=== PATIENT | male | born 1965 | race Caucasian/White ===

== ENCOUNTER 2017-02-09 09:35 | Inpatient (IN) | payer SELFPAY ==
[~2017-02-09] VITALS: Ht 154.9 cm; Wt 103.4 kg
[~2017-02-09 09:35] MED LIST: HYDR-1348 PO; METR500T PO; amoxicillin; dicyclomine; omeprazole; reglan
[2017-02-09 12:32] LABS: HEMATOCRIT. 24.6 % (42.0-52.0); HEMOGLOBIN. 7.2 g/dL (14.0-18.0); MEAN CORPUSCULAR HEMOGLOBIN 17.8 pg (28.0-32.0); MEAN CORPUSCULAR VOLUME 61.2 fL (80.0-94.0); MEAN PLATELET VOLUME 8.2 fl (7.4-10.4); PLATELET 244 x1000/uL (130-400); RED BLOOD CELL COUNT 4.02 mill/uL (4.7-6.1); RED CELL DISTRIBUTION WIDTH 20.7 % (11.6-14.6)
[2017-02-09 12:38] LABS: INR 1.4; PROTHROMBIN TIME 14.7 sec (9.4-11.6)
[2017-02-09 12:48] LABS: CARBON DIOXIDE 30 mEq/L (21-32); CHLORIDE 106 mEq/L (98-107); TROPONIN I < 0.02 ng/mL (0.00-0.04)
[2017-02-09 12:57] LABS: PLATELET ESTIMATE NORMAL
[2017-02-09] MEDS ORDERED: POTASSIUM CHLORIDE 20MEQ TABLET SR PO ONE (14:15)
[2017-02-09 15:26] LABS: TOTAL IRON BINDING CAPACITY 394 ug/dL (250-450)
[2017-02-09] MEDS ORDERED: HYDROCODONE/ACETAMINOPHEN 5/325MG TABLET PO PRN (15:30)
[2017-02-09] MEDS ORDERED: MORPHINE SULFATE 2 MG/ML CPJ (NOT FOR IM USE) IV PRN (15:30)
[2017-02-09] MEDS ORDERED: CLONIDINE 0.1MG TABLET PO PRN (15:30)
[2017-02-09] MEDS ORDERED: IPRATROPIUM/ALBUTEROL 0.5-3(2.5)MG/3ML NEB INH PRN (15:30)
[2017-02-09] MEDS ORDERED: GUAIFENESIN 200MG/10ML SUGAR FREE UDC PO PRN (15:30)
[2017-02-09] MEDS ORDERED: DIPHENHYDRAMINE 50MG/ML VIAL IV PRN (15:30)
[2017-02-09] MEDS ORDERED: MAGNESIUM/ALUMINUM HYDROXIDE/SIMETHICONE 30ML UDC PO PRN (15:30)
[2017-02-09] MEDS ORDERED: DOCUSATE SODIUM 100MG CAPSULE PO PRN (15:30)
[2017-02-09] MEDS ORDERED: ONDANSETRON HCL 4MG/2ML VIAL IV PRN (15:30)
[2017-02-09] MEDS ORDERED: NA PHOS,M-B/NA PHOS,DI-BA ENEMA 118ML PR PRN (15:30)
[2017-02-09] MEDS ORDERED: LORAZEPAM 0.5MG TABLET PO PRN (16:30)
[2017-02-09 17:03] LABS: CHLORIDE 106 mEq/L (98-107)
[2017-02-09 17:09] LABS: CARBON DIOXIDE 28 mEq/L (21-32)
[2017-02-09 21:00] VITALS: BP 135/70
[2017-02-09] MEDS ORDERED: DEXTROSE 50% WATER 50ML SYRINGE IV PRN (23:30)
[2017-02-09] MEDS: LORAZEPAM 2MG/ML CPJ IM PRN (23:42)
[2017-02-09] MEDS: DEXT 5%/0.45% NACL KCL 10MEQ/L 1,000 ML IV SCH (23:54)
[2017-02-10] VITALS (10 sets, daily range): BP systolic 125–148; BP diastolic 62–83
[2017-02-10] MEDS: ACETAMINOPHEN 325MG TABLET PO PRN ×2 (05:37→14:50)
[2017-02-10] MEDS: LORAZEPAM 2MG/ML CPJ IM PRN (05:45)
[2017-02-10 06:11] LABS: BASOPHILS % 1.2 % (0.0-2.0); EOSINOPHILS % 10.8 % (0.0-5.0); LYMPHOCYTES % 20.6 % (20.0-50.0); MEAN CORPUSCULAR HEMOGLOBIN 17.8 pg (28.0-32.0); MEAN CORPUSCULAR VOLUME 61.3 fL (80.0-94.0); MEAN PLATELET VOLUME 8.6 fl (7.4-10.4); MONOCYTES % 10.5 % (2.0-8.0); NEUTROPHILS % 56.9 % (40.0-76.0); PLATELET 213 x1000/uL (130-400); RED BLOOD CELL COUNT 3.75 mill/uL (4.7-6.1); RED CELL DISTRIBUTION WIDTH 20.3 % (11.6-14.6)
[2017-02-10 06:45] LABS: CHLORIDE 105 mEq/L (98-107)
[2017-02-10 06:49] LABS: HEMOGLOBIN. 6.7 g/dL (14.0-18.0)
[2017-02-10 06:59] LABS: CARBON DIOXIDE 25 mEq/L (21-32); HDL CHOLESTEROL 38 mg/dL (40-59); LDL CHOLESTEROL 75 mg/dL (5-100)
[2017-02-10] MEDS: BLOOD SUGAR DIAGNOSTIC STRIP TEST SCH ×4 (07:16→20:10)
[2017-02-10] MEDS: INSULIN LISPRO 100 UNITS/ML SUBCUT SCH ×4 (07:17→20:10)
[2017-02-10] MEDS: DEXT 5%/0.45% NACL KCL 10MEQ/L 1,000 ML IV SCH (12:20)
[2017-02-10] MEDS ORDERED: LEVOFLOXACIN 500MG PREMIX 100 ML IV SCH (18:00)
[2017-02-11] VITALS (8 sets, daily range): BP systolic 133–155; BP diastolic 72–90
[2017-02-11 01:06] LABS: HEMATOCRIT 27.5 % (42.0-52.0); HEMOGLOBIN 7.9 g/dL (14.0-18.0)
[2017-02-11 01:10] LABS: INR 1.6; PROTHROMBIN TIME 16.4 sec (9.4-11.6)
[2017-02-11] MEDS: DEXT 5%/0.45% NACL KCL 10MEQ/L 1,000 ML IV SCH (01:55)
[2017-02-11] MEDS: BLOOD SUGAR DIAGNOSTIC STRIP TEST SCH (07:24)
[2017-02-11] MEDS: INSULIN LISPRO 100 UNITS/ML SUBCUT SCH (07:25)
== END 2017-02-11 10:42 | disposition home or self-care (01) | DRG 663 ==
LOC: ER 10:18 → 6EST 14:57 → EDBEDREQ 15:10 → EDBEDREQSVC 15:20 → ENRESERV 19:53
PROVIDERS: ADMIT Internal Medicine; ATTEND Internal Medicine
PROC: 30233N1 Transfusion of Nonautologous Red Blood Cells into Peripheral Vein, Percutaneous Approach (ICD-10-PCS; principal; 2017-02-10)
DX: D63.8 Anemia in other chronic diseases classified elsewhere (principal); I10 Essential (primary) hypertension; E11.9 Type 2 diabetes mellitus without complications; E87.6 Hypokalemia; F17.200 Nicotine dependence, unspecified, uncomplicated; Z90.49 Acquired absence of other specified parts of digestive tract; Z79.899 Other long term (current) drug therapy
CPT/HCPCS: 36415; 36430; 71010; 80048; 80053; 80061; 82962; 83540; 83550; 83880; 84484; 85014; 85018; 85025; 85049; 85384; 85610; 86850; 86900; 86920; 93005; 94664; 99285; J1956; J2060; J7030; J7040; J7620; P9016

== ENCOUNTER 2017-09-08 14:58 | Inpatient (IN) | payer MEDICAID, OTHER ==
[~2017-09-08] VITALS: Ht 152.4 cm; Wt 98.0 kg
[2017-09-08 17:12] LABS: MEAN CORPUSCULAR HEMOGLOBIN 18.7 pg (28.0-32.0); MEAN CORPUSCULAR VOLUME 62.8 fL (80.0-94.0); MEAN PLATELET VOLUME 8.6 fl (7.4-10.4); PLATELET 179 x1000/uL (130-400); RED BLOOD CELL COUNT 3.64 mill/uL (4.7-6.1); RED CELL DISTRIBUTION WIDTH 21.5 % (11.6-14.6)
[2017-09-08 17:15] LABS: INR 1.4; PROTHROMBIN TIME 14.9 sec (9.4-11.6)
[2017-09-08 17:16] LABS: HEMATOCRIT. 22.9 % (42.0-52.0); HEMOGLOBIN. 6.8 g/dL (14.0-18.0)
[2017-09-08 17:49] LABS: PLATELET ESTIMATE NORMAL
[2017-09-08 19:45] LABS: CHLORIDE 111 mEq/L (98-107)
[2017-09-08] MEDS ORDERED: DOCUSATE SODIUM 100MG CAPSULE PO PRN (21:15)
[2017-09-08] MEDS ORDERED: NA PHOS,M-B/NA PHOS,DI-BA ENEMA 118ML PR PRN (21:15)
[2017-09-08] MEDS ORDERED: ONDANSETRON HCL 4MG/2ML VIAL IV PRN (21:15)
[2017-09-08] MEDS ORDERED: DIPHENHYDRAMINE 50MG/ML VIAL IV PRN (21:15)
[2017-09-08] MEDS ORDERED: ACETAMINOPHEN 650MG/20.3ML UDC GT PRN (21:15)
[2017-09-08] MEDS ORDERED: ACETAMINOPHEN 650MG SUPP PR PRN (21:15)
[2017-09-08] MEDS ORDERED: ACETAMINOPHEN 325MG TABLET PO PRN (21:15)
[2017-09-08] MEDS ORDERED: MAGNESIUM/ALUMINUM HYDROXIDE/SIMETHICONE 30ML UDC PO PRN (21:15)
[2017-09-08] MEDS ORDERED: HYDROCODONE/ACETAMINOPHEN 5/325MG TABLET PO PRN (21:15)
[2017-09-08] MEDS ORDERED: GUAIFENESIN 200MG/10ML SUGAR FREE UDC PO PRN (21:15)
[2017-09-08] MEDS ORDERED: IPRATROPIUM/ALBUTEROL 0.5-3(2.5)MG/3ML NEB INH PRN (21:15)
[2017-09-08] MEDS ORDERED: CLONIDINE 0.1MG TABLET PO PRN (21:15)
[2017-09-08] MEDS ORDERED: HYDROCODONE/ACETAMINOPHEN 10/325MG TABLET PO PRN (21:15)
[2017-09-08 22:05] LABS: TOTAL IRON BINDING CAPACITY 398 ug/dL (250-450)
[2017-09-08 22:25] LABS: FOLIC ACID (FOLATE) SERUM 13.6 ng/mL (>5.38)
[2017-09-08 22:36] VITALS: BP 117/50
[2017-09-08] MEDS: PANTOPRAZOLE SODIUM 40 MG/VIAL IV SCH (23:04)
[2017-09-08] MEDS: SODIUM CHLORIDE 0.9% INJ 3ML FLUSH IVF SCH (23:04)
[2017-09-08 23:28] LABS: CREATINE KINASE 91 IU/L (39-308)
[2017-09-08 23:29] LABS: CREATINE KINASE MB FRACTION 0.6 ng/mL (0.5-3.6)
[2017-09-09] VITALS (11 sets, daily range): BP systolic 104–127; BP diastolic 51–73
[2017-09-09] MEDS ORDERED: DEXTROSE 50% WATER 50ML SYRINGE IV PRN (05:00)
[2017-09-09 05:34] LABS: HEMATOCRIT. 26.5 % (42.0-52.0); MEAN CORPUSCULAR HEMOGLOBIN 19.6 pg (28.0-32.0); MEAN CORPUSCULAR VOLUME 64.9 fL (80.0-94.0); MEAN PLATELET VOLUME 8.8 fl (7.4-10.4); PLATELET 189 x1000/uL (130-400); RED BLOOD CELL COUNT 4.08 mill/uL (4.7-6.1); RED CELL DISTRIBUTION WIDTH 23.6 % (11.6-14.6)
[2017-09-09 05:43] LABS: CHLORIDE 109 mEq/L (98-107)
[2017-09-09 05:51] LABS: HDL CHOLESTEROL 39 mg/dL (40-59); LDL CHOLESTEROL 55 mg/dL (5-100)
[2017-09-09 05:52] LABS: CREATINE KINASE 85 IU/L (39-308)
[2017-09-09 05:54] LABS: CREATINE KINASE MB FRACTION 0.6 ng/mL (0.5-3.6)
[2017-09-09] MEDS: SODIUM CHLORIDE 0.9% INJ 3ML FLUSH IVF SCH ×3 (06:36→21:24)
[2017-09-09] MEDS: BLOOD SUGAR DIAGNOSTIC STRIP TEST SCH ×4 (06:37→20:19)
[2017-09-09] MEDS: INSULIN LISPRO 100 UNITS/ML SUBCUT SCH ×4 (07:50→20:19)
[2017-09-09] MEDS: PANTOPRAZOLE SODIUM 40 MG/VIAL IV SCH (10:17)
[2017-09-09] MEDS ORDERED: POTASSIUM CHLORIDE 20MEQ TABLET SR PO SCH (12:00)
[2017-09-09 13:22] LABS: *AMPHETAMINES SCREEN URINE NEGATIVE (NEGATIVE); *BARBITURATES SCREEN URINE NEGATIVE (NEGATIVE); *BENZODIAZEPINES SCREEN URINE NEGATIVE (NEGATIVE); *COCAINE SCREEN URINE NEGATIVE (NEGATIVE); CANNABINOID URINE SCREEN NEGATIVE (NEGATIVE); METHADONE URINE SCREEN NEGATIVE (NEGATIVE); OPIATES URINE SCREEN NEGATIVE (NEGATIVE); PHENCYCLIDINE URINE SCREEN NEGATIVE (NEGATIVE)
[2017-09-09 15:51] LABS: HEMATOCRIT 26.3 % (42.0-52.0); HEMOGLOBIN 7.9 g/dL (14.0-18.0)
[2017-09-09] MEDS ORDERED: METOCLOPRAMIDE HCL 10MG/2ML VIAL IV NR ×2 (17:15→21:15)
[2017-09-09] MEDS ORDERED: BISACODYL 5MG TABLET PO NR ×2 (17:15→21:15)
[2017-09-09] MEDS ORDERED: SORBITOL 70% SOLN 30ML PO NR ×2 (18:15→22:15)
[2017-09-09 18:23] LABS: CHLORIDE 107 mEq/L (98-107)
[2017-09-09 18:59] LABS: PLATELET ESTIMATE NORMAL
[2017-09-09] MEDS: DEXT 5%/0.45% NACL KCL 20MEQ/L 1,000 ML IV SCH (21:23)
[2017-09-10] MEDS ORDERED: BISACODYL 5MG TABLET PO NR (01:15)
[2017-09-10] MEDS ORDERED: METOCLOPRAMIDE HCL 10MG/2ML VIAL IV NR (01:15)
[2017-09-10] MEDS ORDERED: SORBITOL 70% SOLN 30ML PO NR (02:15)
[2017-09-10] MEDS: DEXT 5%/0.45% NACL KCL 20MEQ/L 1,000 ML IV SCH (04:20)
[2017-09-10 04:28] VITALS: BP 119/65
[2017-09-10 05:48] LABS: INR 1.4; PARTIAL THROMBOPLASTIN TIME 28.4 sec (23.4-31.0); PROTHROMBIN TIME 14.4 sec (9.4-11.6)
[2017-09-10 06:00] LABS: HEMATOCRIT. 32.2 % (42.0-52.0); HEMOGLOBIN. 9.5 g/dL (14.0-18.0); MEAN CORPUSCULAR HEMOGLOBIN 19.2 pg (28.0-32.0); MEAN CORPUSCULAR VOLUME 65.1 fL (80.0-94.0); MEAN PLATELET VOLUME 8.7 fl (7.4-10.4); PLATELET 246 x1000/uL (130-400); RED BLOOD CELL COUNT 4.95 mill/uL (4.7-6.1)
[2017-09-10] MEDS: SODIUM CHLORIDE 0.9% INJ 3ML FLUSH IVF SCH ×2 (06:00→14:00)
[2017-09-10] MEDS: BLOOD SUGAR DIAGNOSTIC STRIP TEST SCH ×2 (06:13→12:09)
[2017-09-10] MEDS: INSULIN LISPRO 100 UNITS/ML SUBCUT SCH ×2 (06:13→12:10)
[2017-09-10 06:21] LABS: CHLORIDE 109 mEq/L (98-107)
[2017-09-10 08:00] VITALS: BP 120/70
[2017-09-10] MEDS: PANTOPRAZOLE SODIUM 40 MG/VIAL IV SCH (09:33)
[2017-09-10 11:39] VITALS: BP 117/67
[2017-09-10 11:50] LABS: PLATELET ESTIMATE NORMAL
[2017-09-10] MEDS ORDERED: FENTANYL CITRATE/PF 50MCG/ML 2ML VIAL ONE (12:49)
[2017-09-10] MEDS ORDERED: MIDAZOLAM HCL 5 MG/5 ML VIAL ONE (12:49)
[2017-09-10] MEDS ORDERED: FENTANYL CITRATE/PF 50MCG/ML 2ML VIAL IV PRN (13:02)
[2017-09-10] MEDS ORDERED: MIDAZOLAM HCL 2 MG/2 ML VIAL IV PRN (13:05)
[2017-09-10] MEDS ORDERED: FERR236T3 MT (13:09)
[2017-09-10] MEDS ORDERED: PANT40SU MT (13:10)
[2017-09-10] MEDS ORDERED: DIPHENHYDRAMINE 50MG/ML VIAL IV PRN (13:13)
[2017-09-10] MEDS ORDERED: DIPHENHYDRAMINE 50MG/ML VIAL ONE ×2 (13:15→13:18)
[2017-09-10] MEDS ORDERED: SIMETHICONE 40 MG/0.6 ML 30ML ONE (14:28)
[2017-09-10] MEDS ORDERED: STERILE WATER FOR INJECTION 10ML VIAL ONE (14:28)
[2017-09-10 16:15] VITALS: BP 113/56
[2017-09-10 17:50] VITALS: BP 113/56
== END 2017-09-10 18:51 | disposition home or self-care (01) | DRG 253 ==
LOC: ER 14:58 → EDBEDREQTM 18:49 → EDBEDREQ 18:49 → 6WST 18:50 → EDBEDREQ 18:52 → EDBEDREQTM 18:52 → ENRESERV 20:20
PROVIDERS: ADMIT Family Medicine; ATTEND Family Medicine
PROC: 0DJD8ZZ Inspection of Lower Intestinal Tract, Via Natural or Artificial Opening Endoscopic (ICD-10-PCS; 2017-09-10)
PROC: 0DB68ZX Excision of Stomach, Via Natural or Artificial Opening Endoscopic, Diagnostic (ICD-10-PCS; principal; 2017-09-10 11:30)
DX: K62.5 Hemorrhage of anus and rectum (principal); E44.0 Moderate protein-calorie malnutrition; Z68.41 Body mass index [BMI] 40.0-44.9, adult; E83.51 Hypocalcemia; K29.70 Gastritis, unspecified, without bleeding; K29.81 Duodenitis with bleeding; D62 Acute posthemorrhagic anemia; E11.9 Type 2 diabetes mellitus without complications; E87.6 Hypokalemia; F17.200 Nicotine dependence, unspecified, uncomplicated; E66.9 Obesity, unspecified; F17.210 Nicotine dependence, cigarettes, uncomplicated; K64.8 Other hemorrhoids; Z90.49 Acquired absence of other specified parts of digestive tract; Z79.84 Long term (current) use of oral hypoglycemic drugs
CPT/HCPCS: 36415; 80048; 80053; 80061; 80076; 80305; 82550; 82553; 82607; 82728; 82746; 82962; 83540; 83550; 84484; 85014; 85018; 85025; 85044; 85610; 85730; 86850; 86900; 86920; 88305; 88312; 88313; 99285; A4216; C9113; J1200; J1815; J2250; J2765; J3010; J7040; P9016

== ENCOUNTER 2020-04-04 03:46 | Inpatient (IN) | payer MEDICAID ==
[2020-04-04] VITALS (9 sets, daily range): BP systolic 144–186; BP diastolic 52–82
[~2020-04-04] VITALS: Ht 167.6 cm; Wt 111.1 kg
[~2020-04-04 03:46] MED LIST changes: +FERR236T3 MT; -HYDR-1348 PO; -METR500T PO; +PANT40SU MT; -amoxicillin; -dicyclomine; -omeprazole; -reglan
[2020-04-04] MEDS ORDERED: ONDANSETRON HCL 4MG/2ML INJ IV STA (04:13)
[2020-04-04] MEDS ORDERED: SODIUM CHLORIDE 0.9% 1,000 ML IV ONE ×2 (04:15→06:30)
[2020-04-04 05:47] LABS: BASOPHILS % 0.8 % (0.0-2.0); EOSINOPHILS % 1.2 % (0.0-5.0); HEMATOCRIT. 29.7 % (42.0-52.0); LYMPHOCYTES % 14.7 % (20.0-50.0); MEAN CORPUSCULAR HEMOGLOBIN 28.6 pg (28.0-32.0); MEAN CORPUSCULAR VOLUME 85.2 fL (80.0-94.0); MEAN PLATELET VOLUME 8.5 fl (7.4-10.4); MONOCYTES % 11.3 % (2.0-8.0); PLATELET 113 x1000/uL (130-400); RED BLOOD CELL COUNT 3.49 mill/uL (4.7-6.1); RED CELL DISTRIBUTION WIDTH 16.4 % (11.6-14.6)
[2020-04-04 05:52] LABS: CLARITY URINE CLEAR (CLEAR); COLOR URINE YELLOW (YELLOW); KETONES URINE 1+ (NEGATIVE); LEUKOCYTE ESTERASE URINE NEGATIVE (NEGATIVE); NITRITE URINE NEGATIVE (NEGATIVE); OCCULT BLOOD URINE NEGATIVE (NEGATIVE); PH URINE 5.5 (4.5-8.0); PROTEIN URINE TRACE (NEGATIVE); SPECIFIC GRAVITY URINE 1.028 (1.005-1.030)
[2020-04-04 05:52] LABS: CHLORIDE 91 mEq/L (98-107)
[2020-04-04 05:59] LABS: ETHANOL BLOOD 98 mg/dL
[2020-04-04 06:03] LABS: BETA HYDROXYBUTYRATE 0.4 mMol/L (0.0-0.3)
[2020-04-04 06:05] LABS: *AMPHETAMINES SCREEN URINE NEGATIVE (NEGATIVE); *BARBITURATES SCREEN URINE NEGATIVE (NEGATIVE); *BENZODIAZEPINES SCREEN URINE NEGATIVE (NEGATIVE); *COCAINE SCREEN URINE NEGATIVE (NEGATIVE); METHADONE URINE SCREEN NEGATIVE (NEGATIVE); OPIATES URINE SCREEN NEGATIVE (NEGATIVE)
[2020-04-04 06:07] LABS: CANNABINOID URINE SCREEN NEGATIVE (NEGATIVE); PHENCYCLIDINE URINE SCREEN NEGATIVE (NEGATIVE)
[2020-04-04] MEDS ORDERED: PANTOPRAZOLE SODIUM 40 MG/VIAL IV STA (06:26)
[2020-04-04] MEDS ORDERED: OCTREOTIDE ACETATE 50 MCG/ML 1ML IV STA (06:26)
[2020-04-04] MEDS ORDERED: CEFTRIAXONE 1 G PREMIX 50 ML IV ONE (06:30)
[2020-04-04] MEDS ORDERED: LORAZEPAM 2MG/ML CPJ IV ONE (07:00)
[2020-04-04 07:40] LABS: INR 1.9; PROTHROMBIN TIME 19.1 sec (9.6-11.0)
[2020-04-04] MEDS ORDERED: OCTREOTIDE ACETATE 100 MCG/ML 1ML IV STA (08:30)
[2020-04-04] MEDS ORDERED: DEXTROSE 50% WATER 50ML SYRINGE IV PRN (08:45)
[2020-04-04] MEDS ORDERED: METOPROLOL TARTRATE 25MG TABLET PO ONE (08:45)
[2020-04-04] MEDS ORDERED: LORAZEPAM 2MG/ML CPJ IV PRN ×2 (08:45→16:00)
[2020-04-04] MEDS ORDERED: ONDANSETRON HCL 4MG/2ML INJ IV ONE (08:45)
[2020-04-04] MEDS ORDERED: FOLIC ACID 1 MG, THIAMINE HCL 100 MG, MVI, ADULT NO.1 10 ML in DEXTROSE 5% WATER 1,000 ML IV ONE (08:45)
[2020-04-04] MEDS: POTASSIUM CHLORIDE INJ 40 MEQ in DEXT 5% WATER 500 ML IV SCH ×3 (08:59→16:34)
[2020-04-04] MEDS ORDERED: PANTOPRAZOLE SODIUM 40 MG/VIAL IV SCH (09:00)
[2020-04-04] MEDS: MULTIVITAMINS,THER W-MINERALS TABLET PO SCH (09:00)
[2020-04-04] MEDS: BLOOD SUGAR DIAGNOSTIC STRIP TEST SCH ×3 (09:00→22:04)
[2020-04-04] MEDS: METOPROLOL TARTRATE 25MG TABLET PO SCH ×2 (09:00→22:02)
[2020-04-04] MEDS: THIAMINE HCL IV SCH ×2 (09:15→16:34)
[2020-04-04] MEDS: NACL IV SCH ×2 (09:15→16:34)
[2020-04-04] MEDS: FOLIC ACID IV SCH ×2 (09:15→16:34)
[2020-04-04] MEDS: DEXT IV SCH ×2 (09:15→16:34)
[2020-04-04] MEDS: ONDANSETRON HCL 4MG/2ML INJ IV PRN ×2 (10:15→15:09)
[2020-04-04] MEDS ORDERED: SODIUM CHLORIDE 0.9% 500 ML IV ONE (11:30)
[2020-04-04] MEDS ORDERED: HYDRALAZINE 20MG/ML VIAL IV PRN ×2 (11:30)
[2020-04-04 11:51] LABS: HEPATITIS B SURFACE ANTIGEN NEGATIVE
[2020-04-04] MEDS: MORPHINE SULFATE 2 MG/ML CPJ (NOT FOR IM USE) IV PRN (12:12)
[2020-04-04 12:21] LABS: HEPATITIS A AB IGM NEGATIVE (NEGATIVE)
[2020-04-04] MEDS ORDERED: OCTREOTIDE 1,000 MCG in SODIUM CHLORIDE 0.9% 100 ML IV ONE (12:30)
[2020-04-04] MEDS ORDERED: PANTOPRAZOLE 80 MG in SODIUM CHLORIDE 0.9% 100 ML IV SCH (12:30)
[2020-04-04] MEDS: INSULIN LISPRO 100 UNITS/ML SUBCUT SCH ×3 (12:53→21:00)
[2020-04-04] MEDS ORDERED: PHYTONADIONE 10 MG in DEXTROSE 5% WATER 50 ML SUBCUT ONE (13:00)
[2020-04-04] MEDS ORDERED: POTASSIUM CHLORIDE INJ 40 MEQ in DEXT 5% WATER 250 ML IV SCH ×2 (13:00→16:00)
[2020-04-04] MEDS ORDERED: PHYTONADIONE 10MG/ML AMP SUBCUT NR (13:15)
[2020-04-04] MEDS: CHLORDIAZEPOXIDE 25MG CAPSULE PO SCH ×2 (15:03→22:00)
[2020-04-04] MEDS: PANTOPRAZOLE 80 MG in SODIUM CHLORIDE 0.9% 100 ML IV SCH ×2 (15:12→23:00)
[2020-04-04] MEDS: OCTREOTIDE 1,000 MCG in SODIUM CHLORIDE 0.9% 98 ML IV SCH (15:12)
[2020-04-04 15:56] LABS: HEMOGLOBIN 10.6 g/dL (14.0-18.0)
[2020-04-04] MEDS ORDERED: LORAZEPAM 2MG/ML CPJ IV NR (16:00)
[2020-04-04] MEDS ORDERED: LORAZEPAM 2MG/ML CPJ IM PRN (16:00)
[2020-04-04] MEDS ORDERED: HALOPERIDOL LACTATE 5MG/ML VIAL IM PRN (16:15)
[2020-04-04] MEDS ORDERED: DIGOXIN 500MCG/2ML AMP IV NR (17:00)
[2020-04-04 18:05] LABS: HEMATOCRIT 30.2 % (42.0-52.0); HEMOGLOBIN 10.1 g/dL (14.0-18.0)
[2020-04-04] MEDS ORDERED: DIPHENHYDRAMINE 50MG CAPSULE PO PRN (18:15)
[2020-04-04] MEDS ORDERED: DILTIAZEM HCL 5MG/ML 5ML VIAL IV NR (18:15)
[2020-04-04] MEDS ORDERED: DILTIAZEM HCL 125 MG in DEXT 5% WATER 100 ML IV SCH (18:15)
[2020-04-04] MEDS: METRONIDAZOLE 500 MG PREMIX 100 ML IV SCH (20:00)
[2020-04-04] MEDS: CEFEPIME 1,000 MG in DEXTROSE 5% WATER 50 ML IV SCH (20:08)
[2020-04-04] MEDS: DILTIAZEM HCL 125 MG in DEXT 5% WATER 100 ML IV SCH (21:12)
[2020-04-05] VITALS (32 sets, daily range): BP systolic 97–158; BP diastolic 35–84
[2020-04-05 00:29] LABS: HEMATOCRIT 29.9 % (42.0-52.0); HEMOGLOBIN 9.8 g/dL (14.0-18.0)
[2020-04-05] MEDS ORDERED: METOPROLOL TARTRATE 5MG/5ML VIAL IV PRN (01:30)
[2020-04-05] MEDS: METRONIDAZOLE 500 MG PREMIX 100 ML IV SCH ×3 (04:00→20:47)
[2020-04-05] MEDS: CHLORDIAZEPOXIDE 25MG CAPSULE PO SCH ×2 (05:29→15:25)
[2020-04-05] MEDS: BLOOD SUGAR DIAGNOSTIC STRIP TEST SCH ×4 (05:29→21:45)
[2020-04-05] MEDS ORDERED: CEFTRIAXONE 1,000 MG in DEXTROSE 5% WATER 50 ML IV SCH (06:00)
[2020-04-05] MEDS ORDERED: CEFTRIAXONE 1 G PREMIX 50 ML IV SCH (06:00)
[2020-04-05] MEDS: INSULIN LISPRO 100 UNITS/ML SUBCUT SCH ×4 (06:04→21:46)
[2020-04-05 06:20] LABS: HEMOGLOBIN. 9.5 g/dL (14.0-18.0); MEAN CORPUSCULAR HEMOGLOBIN 28.5 pg (28.0-32.0); MEAN CORPUSCULAR VOLUME 87.2 fL (80.0-94.0); PLATELET 101 x1000/uL (130-400); RED BLOOD CELL COUNT 3.32 mill/uL (4.7-6.1); RED CELL DISTRIBUTION WIDTH 16.5 % (11.6-14.6)
[2020-04-05 06:22] LABS: CHLORIDE 102 mEq/L (98-107)
[2020-04-05 06:30] LABS: FOLIC ACID (FOLATE) SERUM 18.2 ng/mL (>5.38)
[2020-04-05 06:31] LABS: TOTAL IRON BINDING CAPACITY 236 ug/dL (250-450)
[2020-04-05] MEDS: DILTIAZEM HCL 125 MG in DEXT 5% WATER 100 ML IV SCH ×2 (06:50→16:36)
[2020-04-05] MEDS ORDERED: PANTOPRAZOLE SODIUM 40 MG/VIAL IV ONE (08:54)
[2020-04-05] MEDS ORDERED: PANTOPRAZOLE SODIUM 40 MG/VIAL IV SCH (09:00)
[2020-04-05] MEDS ORDERED: CEFEPIME HCL 1000MG/VIAL INJ IV SCH (09:00)
[2020-04-05] MEDS: MULTIVITAMINS,THER W-MINERALS TABLET PO SCH (09:00)
[2020-04-05] MEDS ORDERED: CEFEPIME HCL 1000MG/VIAL INJ IM SCH (09:00)
[2020-04-05 09:41] LABS: PLATELET ESTIMATE DECREASED
[2020-04-05 09:58] LABS: BG BASE EXCESS 3.1 mmol/L (-2.0-2.0); BG CARBOXYHEMOGLOBIN 0.3 % (0.5-1.5); BG DEOXYHEMOGLOBIN 0.8 % (0.0-5.0); BG FRACTION INSPIRED OXYGEN 100; BG HCO3 ACT 26.2 mmol/L (22.0-26.0); BG METHEMOGLOBIN 0.5 % (0.0-1.5); BG OXYGEN SATURATION 99.2 % (92.0-98.5); BG OXYHEMOGLOBIN 98.4 % (94.0-97.0); BG PCO2 34.4 mmHg (35.0-45.0); BG PH 7.499 (7.350-7.450); BG PO2 229.4 mmHg (75.0-100.0); BG SAMPLE SITE RIGHT RADIAL; BG TOTAL HEMOGLOBIN 10.7 g/dL (12.0-18.0); BG VENT MODE MASK - NRB
[2020-04-05] MEDS ORDERED: LACTULOSE 300 ML in WATER FOR IRRIGATION,STERILE 700 ML IR SCH (10:00)
[2020-04-05] MEDS: METOPROLOL TARTRATE 25MG TABLET PO SCH ×2 (11:00→21:00)
[2020-04-05] MEDS: THIAMINE HCL IV SCH (11:25)
[2020-04-05] MEDS: NACL IV SCH (11:25)
[2020-04-05] MEDS: FOLIC ACID IV SCH (11:25)
[2020-04-05] MEDS: DEXT IV SCH (11:25)
[2020-04-05] MEDS: OCTREOTIDE 1,000 MCG in SODIUM CHLORIDE 0.9% 98 ML IV SCH (11:38)
[2020-04-05] MEDS: PANTOPRAZOLE 80 MG in SODIUM CHLORIDE 0.9% 100 ML IV SCH ×2 (12:22→23:37)
[2020-04-05 13:29] LABS: HEMOGLOBIN 9.9 g/dL (14.0-18.0)
[2020-04-05] MEDS ORDERED: LACTULOSE 20G/30ML UDC PO SCH ×2 (14:00)
[2020-04-05] MEDS: LACTULOSE 20G/30ML UDC PO SCH ×2 (15:26→20:46)
[2020-04-05 17:11] LABS: BG BASE EXCESS 1.7 mmol/L (-2.0-2.0); BG CARBOXYHEMOGLOBIN 0.3 % (0.5-1.5); BG DEOXYHEMOGLOBIN 1.8 % (0.0-5.0); BG FRACTION INSPIRED OXYGEN 60; BG HCO3 ACT 23.7 mmol/L (22.0-26.0); BG METHEMOGLOBIN 0.5 % (0.0-1.5); BG OXYGEN SATURATION 98.2 % (92.0-98.5); BG OXYHEMOGLOBIN 97.4 % (94.0-97.0); BG PCO2 28.6 mmHg (35.0-45.0); BG PH 7.536 (7.350-7.450); BG PO2 114.2 mmHg (75.0-100.0); BG TOTAL HEMOGLOBIN 10.9 g/dL (12.0-18.0); BG VENT MODE MASK - BIPAP
[2020-04-05 18:04] LABS: HEMATOCRIT 29.6 % (42.0-52.0); HEMOGLOBIN 9.5 g/dL (14.0-18.0)
[2020-04-05] MEDS: LORAZEPAM 2MG/ML CPJ IV PRN (20:46)
[2020-04-05] MEDS ORDERED: INSULIN GLARGINE UD 100 UNITS/ML SYR SUBCUT NR (21:00)
[2020-04-05] MEDS: CEFEPIME 1,000 MG in DEXTROSE 5% WATER 50 ML IV SCH (21:24)
[2020-04-05] MEDS ORDERED: CHLORDIAZEPOXIDE 5 MG CAPSULE PO SCH (22:00)
[2020-04-06] VITALS (64 sets, daily range): BP systolic 93–158; BP diastolic 45–90
[2020-04-06] MEDS: DEXT IV SCH ×2 (01:39→16:12)
[2020-04-06] MEDS: FOLIC ACID IV SCH ×2 (01:39→16:12)
[2020-04-06] MEDS: THIAMINE HCL IV SCH ×2 (01:39→16:12)
[2020-04-06] MEDS: NACL IV SCH ×2 (01:39→16:12)
[2020-04-06] MEDS: OCTREOTIDE 1,000 MCG in SODIUM CHLORIDE 0.9% 98 ML IV SCH (01:42)
[2020-04-06 01:46] LABS: HEMATOCRIT 32.5 % (42.0-52.0); HEMOGLOBIN 10.6 g/dL (14.0-18.0)
[2020-04-06] MEDS: LACTULOSE 20G/30ML UDC PO SCH ×4 (02:36→21:11)
[2020-04-06] MEDS: DILTIAZEM HCL 125 MG in DEXT 5% WATER 100 ML IV SCH (04:07)
[2020-04-06] MEDS: METRONIDAZOLE 500 MG PREMIX 100 ML IV SCH ×3 (04:13→22:10)
[2020-04-06 04:52] LABS: CHLORIDE 105 mEq/L (98-107); HEMATOCRIT. 31.2 % (42.0-52.0); HEMOGLOBIN. 10.1 g/dL (14.0-18.0); MEAN CORPUSCULAR HEMOGLOBIN 28.3 pg (28.0-32.0); MEAN CORPUSCULAR VOLUME 87.8 fL (80.0-94.0); PLATELET 121 x1000/uL (130-400); RED BLOOD CELL COUNT 3.55 mill/uL (4.7-6.1); RED CELL DISTRIBUTION WIDTH 17.3 % (11.6-14.6)
[2020-04-06 05:03] LABS: PROTHROMBIN TIME 20.6 sec (9.6-11.0)
[2020-04-06] MEDS: CHLORDIAZEPOXIDE 25MG CAPSULE PO SCH ×3 (05:05→22:08)
[2020-04-06] MEDS: PANTOPRAZOLE 80 MG in SODIUM CHLORIDE 0.9% 100 ML IV SCH ×2 (06:00→16:00)
[2020-04-06] MEDS: BLOOD SUGAR DIAGNOSTIC STRIP TEST SCH ×4 (08:28→21:00)
[2020-04-06 08:58] LABS: BG BASE EXCESS -4.6 mmol/L (-2.0-2.0); BG CARBOXYHEMOGLOBIN 0.3 % (0.5-1.5); BG FRACTION INSPIRED OXYGEN 60; BG HCO3 ACT 23.4 mmol/L (22.0-26.0); BG METHEMOGLOBIN 0.7 % (0.0-1.5); BG OXYGEN SATURATION 94.9 % (92.0-98.5); BG PH 7.224 (7.350-7.450); BG PO2 95.7 mmHg (75.0-100.0); BG TOTAL HEMOGLOBIN 10.4 g/dL (12.0-18.0); BG VENT MODE MASK - BIPAP
[2020-04-06] MEDS: METOPROLOL TARTRATE 25MG TABLET PO SCH ×2 (09:48→21:12)
[2020-04-06] MEDS: MULTIVITAMINS,THER W-MINERALS TABLET PO SCH (09:52)
[2020-04-06] MEDS: INSULIN LISPRO 100 UNITS/ML SUBCUT SCH ×4 (09:53→22:07)
[2020-04-06] MEDS ORDERED: INSULIN GLARGINE UD 100 UNITS/ML SYR SUBCUT SCH (10:00)
[2020-04-06] MEDS ORDERED: PHYTONADIONE 10MG/ML AMP SUBCUT SCH (10:45)
[2020-04-06 13:17] LABS: PLATELET ESTIMATE SLIGHTLY DECREASED
[2020-04-06] MEDS: CEFEPIME 2,000 MG in DEXT 5% WATER 100 ML IV SCH ×2 (14:00→22:04)
[2020-04-06] MEDS: LORAZEPAM 2MG/ML CPJ IV PRN (16:11)
[2020-04-06] MEDS: INSULIN GLARGINE UD 100 UNITS/ML SYR SUBCUT SCH (22:51)
[2020-04-07] VITALS (23 sets, daily range): BP systolic 73–190; BP diastolic 40–152
[2020-04-07] MEDS: OCTREOTIDE 1,000 MCG in SODIUM CHLORIDE 0.9% 98 ML IV SCH ×2 (00:29→23:27)
[2020-04-07] MEDS: LORAZEPAM 2MG/ML CPJ IM PRN ×4 (00:34→19:16)
[2020-04-07] MEDS: LACTULOSE 20G/30ML UDC PO SCH ×4 (04:28→20:00)
[2020-04-07] MEDS: METRONIDAZOLE 500 MG PREMIX 100 ML IV SCH ×3 (04:29→20:23)
[2020-04-07] MEDS: PANTOPRAZOLE 80 MG in SODIUM CHLORIDE 0.9% 100 ML IV SCH ×3 (04:56→22:00)
[2020-04-07] MEDS: CEFEPIME 2,000 MG in DEXT 5% WATER 100 ML IV SCH ×3 (05:29→23:24)
[2020-04-07 05:42] LABS: HEMATOCRIT. 27.7 % (42.0-52.0); HEMOGLOBIN. 8.9 g/dL (14.0-18.0); MEAN CORPUSCULAR HEMOGLOBIN 28.8 pg (28.0-32.0); MEAN CORPUSCULAR VOLUME 89.2 fL (80.0-94.0); MEAN PLATELET VOLUME 8.7 fl (7.4-10.4); PLATELET 107 x1000/uL (130-400); RED CELL DISTRIBUTION WIDTH 17.4 % (11.6-14.6)
[2020-04-07 05:48] LABS: CHLORIDE 110 mEq/L (98-107)
[2020-04-07 05:50] LABS: INR 1.9; PROTHROMBIN TIME 19.7 sec (9.6-11.0)
[2020-04-07] MEDS: CHLORDIAZEPOXIDE 25MG CAPSULE PO SCH ×3 (06:11→22:00)
[2020-04-07 07:14] LABS: BG CARBOXYHEMOGLOBIN 0.3 % (0.5-1.5); BG DEOXYHEMOGLOBIN 2.5 % (0.0-5.0); BG FRACTION INSPIRED OXYGEN 60; BG HCO3 ACT 24.9 mmol/L (22.0-26.0); BG METHEMOGLOBIN 0.3 % (0.0-1.5); BG OXYGEN SATURATION 97.5 % (92.0-98.5); BG OXYHEMOGLOBIN 96.9 % (94.0-97.0); BG PCO2 41.7 mmHg (35.0-45.0); BG PH 7.394 (7.350-7.450); BG PO2 107.6 mmHg (75.0-100.0); BG SAMPLE SITE LEFT RADIAL; BG TOTAL RESPIRATORY RATE 26 b/min; BG VENT MODE MASK - BIPAP
[2020-04-07] MEDS: BLOOD SUGAR DIAGNOSTIC STRIP TEST SCH ×4 (07:50→21:00)
[2020-04-07] MEDS: INSULIN LISPRO 100 UNITS/ML SUBCUT SCH ×3 (08:20→19:16)
[2020-04-07] MEDS: METOPROLOL TARTRATE 25MG TABLET PO SCH ×2 (09:00→21:00)
[2020-04-07] MEDS ORDERED: PHYTONADIONE 10MG/ML AMP SUBCUT SCH (09:00)
[2020-04-07] MEDS: MULTIVITAMINS,THER W-MINERALS TABLET PO SCH (10:46)
[2020-04-07] MEDS: INSULIN GLARGINE UD 100 UNITS/ML SYR SUBCUT SCH (10:47)
[2020-04-07] MEDS ORDERED: LORAZEPAM 2MG/ML CPJ IV PRN ×2 (11:00→20:15)
[2020-04-07] MEDS ORDERED: POTASSIUM CHLORIDE INJ 40 MEQ in DEXT 5% WATER 250 ML IV SCH (12:00)
[2020-04-07 16:56] LABS: PLATELET ESTIMATE DECREASED
[2020-04-07] MEDS: MORPHINE SULFATE 2 MG/ML CPJ (NOT FOR IM USE) IV PRN (19:13)
[2020-04-07] MEDS ORDERED: LABETALOL 5MG/ML SYR 20 MG/4 ML SYRINGE IV PRN (20:15)
[2020-04-08] VITALS (46 sets, daily range): BP systolic 87–166; BP diastolic 45–124
[2020-04-08] MEDS: INSULIN LISPRO 100 UNITS/ML SUBCUT SCH ×5 (00:44→22:00)
[2020-04-08] MEDS: INSULIN GLARGINE UD 100 UNITS/ML SYR SUBCUT SCH ×3 (00:44→22:00)
[2020-04-08] MEDS: LACTULOSE 20G/30ML UDC PO SCH ×4 (02:00→22:01)
[2020-04-08] MEDS: MORPHINE SULFATE 2 MG/ML CPJ (NOT FOR IM USE) IV PRN (03:00)
[2020-04-08] MEDS ORDERED: HALOPERIDOL LACTATE 5MG/ML VIAL IM NR (03:15)
[2020-04-08] MEDS: METRONIDAZOLE 500 MG PREMIX 100 ML IV SCH ×3 (03:57→22:01)
[2020-04-08] MEDS: CHLORDIAZEPOXIDE 25MG CAPSULE PO SCH ×3 (05:31→22:00)
[2020-04-08 05:46] LABS: CHLORIDE 114 mEq/L (98-107)
[2020-04-08 05:47] LABS: INR 1.8; PROTHROMBIN TIME 18.2 sec (9.6-11.0)
[2020-04-08 05:51] LABS: HEMATOCRIT. 27.7 % (42.0-52.0); MEAN CORPUSCULAR HEMOGLOBIN 28.9 pg (28.0-32.0); MEAN CORPUSCULAR VOLUME 89.2 fL (80.0-94.0); MEAN PLATELET VOLUME 8.7 fl (7.4-10.4); PLATELET 72 x1000/uL (130-400); RED CELL DISTRIBUTION WIDTH 17.9 % (11.6-14.6)
[2020-04-08] MEDS: CEFEPIME 2,000 MG in DEXT 5% WATER 100 ML IV SCH ×3 (06:00→22:01)
[2020-04-08] MEDS ORDERED: HALOPERIDOL LACTATE 5MG/ML VIAL IM PRN (06:45)
[2020-04-08] MEDS: BLOOD SUGAR DIAGNOSTIC STRIP TEST SCH ×4 (07:50→21:00)
[2020-04-08] MEDS: NACL IV SCH ×2 (08:00→19:09)
[2020-04-08] MEDS: FOLIC ACID IV SCH ×2 (08:00→19:09)
[2020-04-08] MEDS: PANTOPRAZOLE 80 MG in SODIUM CHLORIDE 0.9% 100 ML IV SCH ×2 (08:00→17:39)
[2020-04-08] MEDS: DEXT IV SCH ×2 (08:00→19:09)
[2020-04-08] MEDS: THIAMINE HCL IV SCH ×2 (08:00→19:09)
[2020-04-08] MEDS: METOPROLOL TARTRATE 25MG TABLET PO SCH ×2 (08:17→21:00)
[2020-04-08] MEDS: MULTIVITAMINS,THER W-MINERALS TABLET PO SCH (08:18)
[2020-04-08] MEDS ORDERED: LIDOCAINE HCL 1% 20ML VIAL (Pyxis) INJ ONE (08:29)
[2020-04-08 09:32] LABS: PLATELET ESTIMATE DECREASED
[2020-04-08] MEDS: LORAZEPAM 2MG/ML CPJ IM PRN (09:47)
[2020-04-08] MEDS ORDERED: ETOMIDATE 2MG/ML 10ML VIAL IV ONE (12:00)
[2020-04-08] MEDS ORDERED: VECURONIUM BROMIDE 10 MG/VIAL IV ONE (12:00)
[2020-04-08] MEDS ORDERED: SODIUM CHLORIDE 0.9% 10ML VIAL ONE (12:00)
[2020-04-08 13:46] LABS: BG CARBOXYHEMOGLOBIN 0.1 % (0.5-1.5); BG DEOXYHEMOGLOBIN 5.5 % (0.0-5.0); BG FRACTION INSPIRED OXYGEN 75; BG HCO3 ACT 26.1 mmol/L (22.0-26.0); BG METHEMOGLOBIN 0.4 % (0.0-1.5); BG OXYGEN SATURATION 94.5 % (92.0-98.5); BG PCO2 49.4 mmHg (35.0-45.0); BG PH 7.341 (7.350-7.450); BG PO2 74.9 mmHg (75.0-100.0); BG SAMPLE SITE RIGHT RADIAL; BG TOTAL HEMOGLOBIN 10.5 g/dL (12.0-18.0); BG VENT MODE VENT - AC
[2020-04-08] MEDS: FENTANYL CITRATE/PF 2,500 MCG in SODIUM CHLORIDE 0.9% 200 ML IV PRN (14:48)
[2020-04-08] MEDS: MIDAZOLAM 100MG/100ML PMX 100 ML IV PRN (14:59)
[2020-04-08] MEDS: OCTREOTIDE 1,000 MCG in SODIUM CHLORIDE 0.9% 98 ML IV SCH (17:00)
[2020-04-08] MEDS: IPRATROPIUM/ALBUTEROL 0.5-3(2.5)MG/3ML NEB HHN SCH (22:10)
[2020-04-09] VITALS (47 sets, daily range): BP systolic 86–147; BP diastolic 47–76
[2020-04-09 00:53] LABS: HEMATOCRIT 25.8 % (42.0-52.0); HEMOGLOBIN 8.2 g/dL (14.0-18.0)
[2020-04-09] MEDS: LACTULOSE 20G/30ML UDC PO SCH ×4 (01:38→21:03)
[2020-04-09] MEDS: METRONIDAZOLE 500 MG PREMIX 100 ML IV SCH ×2 (04:22→14:19)
[2020-04-09] MEDS: PANTOPRAZOLE 80 MG in SODIUM CHLORIDE 0.9% 100 ML IV SCH ×2 (04:22→14:42)
[2020-04-09] MEDS: IPRATROPIUM/ALBUTEROL 0.5-3(2.5)MG/3ML NEB HHN SCH ×4 (04:30→20:32)
[2020-04-09] MEDS: CHLORDIAZEPOXIDE 25MG CAPSULE PO SCH ×3 (05:14→23:01)
[2020-04-09] MEDS: CEFEPIME 2,000 MG in DEXT 5% WATER 100 ML IV SCH ×3 (05:14→21:02)
[2020-04-09 06:52] LABS: HEMATOCRIT. 26.5 % (42.0-52.0); HEMOGLOBIN. 8.6 g/dL (14.0-18.0); MEAN CORPUSCULAR VOLUME 89.9 fL (80.0-94.0); MEAN PLATELET VOLUME 8.5 fl (7.4-10.4); PLATELET 89 x1000/uL (130-400); RED BLOOD CELL COUNT 2.95 mill/uL (4.7-6.1); RED CELL DISTRIBUTION WIDTH 18.8 % (11.6-14.6)
[2020-04-09 06:58] LABS: CHLORIDE 118 mEq/L (98-107)
[2020-04-09] MEDS: OCTREOTIDE 1,000 MCG in SODIUM CHLORIDE 0.9% 98 ML IV SCH (07:14)
[2020-04-09 07:57] LABS: BG BASE EXCESS 0.3 mmol/L (-2.0-2.0); BG CARBOXYHEMOGLOBIN 0.3 % (0.5-1.5); BG DEOXYHEMOGLOBIN 0.9 % (0.0-5.0); BG FRACTION INSPIRED OXYGEN 75; BG HCO3 ACT 25.7 mmol/L (22.0-26.0); BG METHEMOGLOBIN 0.3 % (0.0-1.5); BG OXYGEN SATURATION 99.1 % (92.0-98.5); BG OXYHEMOGLOBIN 98.5 % (94.0-97.0); BG PCO2 45.4 mmHg (35.0-45.0); BG PEEP (cmH2O) 0 cmH2O; BG PH 7.371 (7.350-7.450); BG PO2 194.3 mmHg (75.0-100.0); BG SAMPLE SITE RIGHT RADIAL; BG TOTAL HEMOGLOBIN 9.5 g/dL (12.0-18.0); BG VENT MODE VENT - AC/VC
[2020-04-09] MEDS ORDERED: ACETAMINOPHEN 325MG TABLET PO PRN (08:15)
[2020-04-09] MEDS: THIAMINE HCL IV SCH (08:19)
[2020-04-09] MEDS: DEXT IV SCH (08:19)
[2020-04-09] MEDS: FOLIC ACID IV SCH (08:19)
[2020-04-09] MEDS: NACL IV SCH (08:19)
[2020-04-09] MEDS: MULTIVITAMINS,THER W-MINERALS TABLET PO SCH (08:50)
[2020-04-09] MEDS: METOPROLOL TARTRATE 25MG TABLET PO SCH ×2 (08:51→21:00)
[2020-04-09] MEDS: INSULIN GLARGINE UD 100 UNITS/ML SYR SUBCUT SCH ×2 (10:08→21:08)
[2020-04-09] MEDS: BLOOD SUGAR DIAGNOSTIC STRIP TEST SCH ×2 (12:15→17:51)
[2020-04-09] MEDS: INSULIN LISPRO 100 UNITS/ML SUBCUT SCH ×2 (12:23→18:08)
[2020-04-09 13:12] LABS: PLATELET ESTIMATE DECREASED
[2020-04-09] MEDS: FENTANYL CITRATE/PF 2,500 MCG in SODIUM CHLORIDE 0.9% 200 ML IV PRN (14:37)
[2020-04-09] MEDS ORDERED: PROPRANOLOL HCL 10MG TABLET PO SCH (21:00)
[2020-04-09] MEDS: RIFAXIMIN 550 MG TABLET PO SCH (21:03)
[2020-04-10] VITALS (55 sets, daily range): BP systolic 85–136; BP diastolic 35–69
[2020-04-10] MEDS: BLOOD SUGAR DIAGNOSTIC STRIP TEST SCH ×4 (00:30→17:04)
[2020-04-10] MEDS: PANTOPRAZOLE 80 MG in SODIUM CHLORIDE 0.9% 100 ML IV SCH ×2 (00:31→09:46)
[2020-04-10] MEDS: INSULIN LISPRO 100 UNITS/ML SUBCUT SCH ×4 (00:40→17:10)
[2020-04-10] MEDS: IPRATROPIUM/ALBUTEROL 0.5-3(2.5)MG/3ML NEB HHN SCH ×4 (02:31→20:21)
[2020-04-10] MEDS: FENTANYL CITRATE/PF 2,500 MCG in SODIUM CHLORIDE 0.9% 200 ML IV PRN ×2 (03:35→13:34)
[2020-04-10] MEDS: LACTULOSE 20G/30ML UDC PO SCH ×4 (03:37→21:16)
[2020-04-10] MEDS: CHLORDIAZEPOXIDE 25MG CAPSULE PO SCH ×3 (06:11→21:17)
[2020-04-10 06:37] LABS: HEMATOCRIT. 25.9 % (42.0-52.0); HEMOGLOBIN. 8.6 g/dL (14.0-18.0); MEAN PLATELET VOLUME 8.6 fl (7.4-10.4); PLATELET 100 x1000/uL (130-400); RED BLOOD CELL COUNT 2.87 mill/uL (4.7-6.1); RED CELL DISTRIBUTION WIDTH 18.9 % (11.6-14.6)
[2020-04-10 06:40] LABS: CHLORIDE 122 mEq/L (98-107)
[2020-04-10 07:49] LABS: BG BASE EXCESS -0.2 mmol/L (-2.0-2.0); BG CARBOXYHEMOGLOBIN 0.7 % (0.5-1.5); BG DEOXYHEMOGLOBIN 2.7 % (0.0-5.0); BG FRACTION INSPIRED OXYGEN 55; BG HCO3 ACT 24.9 mmol/L (22.0-26.0); BG METHEMOGLOBIN 0.2 % (0.0-1.5); BG OXYGEN SATURATION 97.3 % (92.0-98.5); BG OXYHEMOGLOBIN 96.4 % (94.0-97.0); BG PCO2 42.8 mmHg (35.0-45.0); BG PEEP (cmH2O) 0 cmH2O; BG PH 7.383 (7.350-7.450); BG PO2 99.4 mmHg (75.0-100.0); BG SAMPLE SITE RIGHT RADIAL; BG TOTAL HEMOGLOBIN 8.9 g/dL (12.0-18.0); BG VENT MODE VENT - AC/VC
[2020-04-10] MEDS: RIFAXIMIN 550 MG TABLET PO SCH ×2 (09:46→21:17)
[2020-04-10] MEDS: METOPROLOL TARTRATE 25MG TABLET PO SCH (09:46)
[2020-04-10] MEDS: MULTIVITAMINS,THER W-MINERALS TABLET PO SCH (09:46)
[2020-04-10] MEDS: INSULIN GLARGINE UD 100 UNITS/ML SYR SUBCUT SCH ×2 (09:47→21:19)
[2020-04-10] MEDS: DEXT IV SCH (10:19)
[2020-04-10] MEDS: NACL IV SCH (10:19)
[2020-04-10] MEDS: THIAMINE HCL IV SCH (10:19)
[2020-04-10] MEDS: FOLIC ACID IV SCH (10:19)
[2020-04-10 10:21] LABS: NUCLEATED RED BLOOD CELLS 1 /100 WBC
[2020-04-10] MEDS: MIDAZOLAM 100MG/100ML PMX 100 ML IV PRN (10:21)
[2020-04-10 10:26] LABS: PLATELET ESTIMATE SLIGHTLY DECREASED
[2020-04-10] MEDS: PHENYLEPHRINE 100 MG in DEXT 5% WATER 240 ML IV PRN (21:16)
[2020-04-10] MEDS: PANTOPRAZOLE SODIUM 40 MG/VIAL IV SCH (21:17)
[2020-04-10] MEDS: QUETIAPINE FUMARATE 25MG TABLET PO SCH (21:17)
[2020-04-11] VITALS (113 sets, daily range): BP systolic 59–169; BP diastolic 27–88
[2020-04-11] MEDS: LACTULOSE 20G/30ML UDC PO SCH ×4 (02:03→20:35)
[2020-04-11] MEDS: FENTANYL CITRATE/PF 2,500 MCG in SODIUM CHLORIDE 0.9% 200 ML IV PRN (02:04)
[2020-04-11] MEDS: IPRATROPIUM/ALBUTEROL 0.5-3(2.5)MG/3ML NEB HHN SCH ×3 (02:09→20:48)
[2020-04-11] MEDS: INSULIN LISPRO 100 UNITS/ML SUBCUT SCH ×4 (06:00→17:20)
[2020-04-11] MEDS: BLOOD SUGAR DIAGNOSTIC STRIP TEST SCH ×4 (06:00→17:03)
[2020-04-11] MEDS: CHLORDIAZEPOXIDE 25MG CAPSULE PO SCH (06:40)
[2020-04-11 06:52] LABS: HEMATOCRIT. 28.4 % (42.0-52.0); HEMOGLOBIN. 9.3 g/dL (14.0-18.0); MEAN CORPUSCULAR HEMOGLOBIN 29.8 pg (28.0-32.0); MEAN CORPUSCULAR VOLUME 90.6 fL (80.0-94.0); MEAN PLATELET VOLUME 8.3 fl (7.4-10.4); PLATELET 135 x1000/uL (130-400); RED BLOOD CELL COUNT 3.14 mill/uL (4.7-6.1); RED CELL DISTRIBUTION WIDTH 20.4 % (11.6-14.6)
[2020-04-11] MEDS: PANTOPRAZOLE SODIUM 40 MG/VIAL IV SCH ×2 (09:15→20:35)
[2020-04-11] MEDS: RIFAXIMIN 550 MG TABLET PO SCH ×2 (09:15→20:35)
[2020-04-11] MEDS: QUETIAPINE FUMARATE 25MG TABLET PO SCH ×2 (09:15→20:34)
[2020-04-11] MEDS: MULTIVITAMINS,THER W-MINERALS TABLET PO SCH (09:15)
[2020-04-11] MEDS: FOLIC ACID IV SCH (09:16)
[2020-04-11] MEDS: DEXT IV SCH (09:16)
[2020-04-11] MEDS: NACL IV SCH (09:16)
[2020-04-11] MEDS: THIAMINE HCL IV SCH (09:16)
[2020-04-11 10:38] LABS: BG BASE EXCESS -2.6 mmol/L (-2.0-2.0); BG CARBOXYHEMOGLOBIN 0.7 % (0.5-1.5); BG DEOXYHEMOGLOBIN 2.6 % (0.0-5.0); BG FRACTION INSPIRED OXYGEN 50; BG METHEMOGLOBIN 0.2 % (0.0-1.5); BG OXYGEN SATURATION 97.4 % (92.0-98.5); BG OXYHEMOGLOBIN 96.5 % (94.0-97.0); BG PCO2 43.7 mmHg (35.0-45.0); BG PO2 103.3 mmHg (75.0-100.0); BG SAMPLE SITE LEFT RADIAL; BG TOTAL HEMOGLOBIN 8.8 g/dL (12.0-18.0); BG TOTAL RESPIRATORY RATE 18 b/min; BG VENT MODE VENT - AC
[2020-04-11] MEDS: INSULIN GLARGINE UD 100 UNITS/ML SYR SUBCUT SCH ×2 (12:42→22:00)
[2020-04-11] MEDS ORDERED: SODIUM CHLORIDE 0.45% 1,000 ML IV SCH (14:45)
[2020-04-11 16:36] LABS: PLATELET ESTIMATE NORMAL
[2020-04-11] MEDS: PHENYLEPHRINE 100 MG in DEXT 5% WATER 240 ML IV PRN (16:51)
[2020-04-11] MEDS: SODIUM CHLORIDE 0.45% 1,000 ML IV SCH (20:34)
[2020-04-12] VITALS (101 sets, daily range): BP systolic 67–117; BP diastolic 38–68
[2020-04-12] MEDS: BLOOD SUGAR DIAGNOSTIC STRIP TEST SCH ×5 (00:03→23:28)
[2020-04-12] MEDS: INSULIN LISPRO 100 UNITS/ML SUBCUT SCH ×5 (00:12→23:27)
[2020-04-12] MEDS: IPRATROPIUM/ALBUTEROL 0.5-3(2.5)MG/3ML NEB HHN SCH ×4 (00:33→20:14)
[2020-04-12] MEDS: SODIUM CHLORIDE 0.45% 1,000 ML IV SCH (01:13)
[2020-04-12] MEDS: LACTULOSE 20G/30ML UDC PO SCH ×4 (02:32→21:56)
[2020-04-12 06:31] LABS: HEMATOCRIT. 26.1 % (42.0-52.0); HEMOGLOBIN. 8.4 g/dL (14.0-18.0); MEAN CORPUSCULAR HEMOGLOBIN 29.3 pg (28.0-32.0); MEAN CORPUSCULAR VOLUME 90.7 fL (80.0-94.0); MEAN PLATELET VOLUME 8.5 fl (7.4-10.4); PLATELET 148 x1000/uL (130-400); RED BLOOD CELL COUNT 2.88 mill/uL (4.7-6.1); RED CELL DISTRIBUTION WIDTH 20.4 % (11.6-14.6)
[2020-04-12] MEDS: THIAMINE HCL IV SCH (08:23)
[2020-04-12] MEDS: NACL IV SCH (08:23)
[2020-04-12] MEDS: DEXT IV SCH (08:23)
[2020-04-12] MEDS: FOLIC ACID IV SCH (08:23)
[2020-04-12] MEDS: MIDAZOLAM 100MG/100ML PMX 100 ML IV PRN (08:24)
[2020-04-12] MEDS: MULTIVITAMINS,THER W-MINERALS TABLET PO SCH (08:24)
[2020-04-12] MEDS: RIFAXIMIN 550 MG TABLET PO SCH ×2 (08:24→21:56)
[2020-04-12] MEDS: QUETIAPINE FUMARATE 25MG TABLET PO SCH ×2 (08:24→21:56)
[2020-04-12] MEDS: PANTOPRAZOLE SODIUM 40 MG/VIAL IV SCH ×2 (08:24→21:56)
[2020-04-12] MEDS: PHENYLEPHRINE 100 MG in DEXT 5% WATER 240 ML IV PRN ×2 (08:25→20:46)
[2020-04-12] MEDS: INSULIN GLARGINE UD 100 UNITS/ML SYR SUBCUT SCH ×2 (10:10→23:28)
[2020-04-12 10:26] LABS: BG BASE EXCESS -4.2 mmol/L (-2.0-2.0); BG CARBOXYHEMOGLOBIN 0.5 % (0.5-1.5); BG DEOXYHEMOGLOBIN 3.8 % (0.0-5.0); BG FRACTION INSPIRED OXYGEN 45; BG METHEMOGLOBIN 0.4 % (0.0-1.5); BG OXYGEN SATURATION 96.2 % (92.0-98.5); BG OXYHEMOGLOBIN 95.3 % (94.0-97.0); BG PH 7.298 (7.350-7.450); BG PO2 93.8 mmHg (75.0-100.0); BG SAMPLE SITE RIGHT BRACHIAL; BG TOTAL HEMOGLOBIN 8.7 g/dL (12.0-18.0); BG VENT MODE VENT - AC
[2020-04-12 12:36] LABS: PLATELET ESTIMATE NORMAL
[2020-04-12] MEDS: MIDODRINE HCL 5MG TABLET PO SCH ×2 (13:36→18:09)
[2020-04-12] MEDS: FENTANYL CITRATE/PF 2,500 MCG in SODIUM CHLORIDE 0.9% 200 ML IV PRN (16:31)
[2020-04-12] MEDS: DEXT 5%/0.2% NACL 1,000 ML IV SCH (16:39)
[2020-04-13] VITALS (99 sets, daily range): BP systolic 62–142; BP diastolic 38–105
[2020-04-13] MEDS: LACTULOSE 20G/30ML UDC PO SCH ×5 (02:26→23:24)
[2020-04-13] MEDS: DEXT 5%/0.2% NACL 1,000 ML IV SCH ×3 (02:27→22:15)
[2020-04-13] MEDS: IPRATROPIUM/ALBUTEROL 0.5-3(2.5)MG/3ML NEB HHN SCH ×4 (02:37→20:37)
[2020-04-13] MEDS: PHENYLEPHRINE 100 MG in DEXT 5% WATER 240 ML IV PRN ×4 (05:13→22:20)
[2020-04-13] MEDS: INSULIN LISPRO 100 UNITS/ML SUBCUT SCH ×4 (05:28→23:24)
[2020-04-13] MEDS: BLOOD SUGAR DIAGNOSTIC STRIP TEST SCH ×4 (05:28→23:33)
[2020-04-13 06:05] LABS: HEMATOCRIT. 27.4 % (42.0-52.0); HEMOGLOBIN. 8.5 g/dL (14.0-18.0); MEAN CORPUSCULAR HEMOGLOBIN 28.5 pg (28.0-32.0); MEAN CORPUSCULAR VOLUME 92.5 fL (80.0-94.0); MEAN PLATELET VOLUME 8.6 fl (7.4-10.4); PLATELET 194 x1000/uL (130-400); RED BLOOD CELL COUNT 2.97 mill/uL (4.7-6.1)
[2020-04-13] MEDS: DEXT IV SCH (07:36)
[2020-04-13] MEDS: FOLIC ACID IV SCH (07:36)
[2020-04-13] MEDS: NACL IV SCH (07:36)
[2020-04-13] MEDS: THIAMINE HCL IV SCH (07:36)
[2020-04-13] MEDS: QUETIAPINE FUMARATE 25MG TABLET PO SCH ×2 (08:23→22:08)
[2020-04-13] MEDS: MULTIVITAMINS,THER W-MINERALS TABLET PO SCH (08:23)
[2020-04-13] MEDS: RIFAXIMIN 550 MG TABLET PO SCH ×2 (08:23→22:08)
[2020-04-13] MEDS: PANTOPRAZOLE SODIUM 40 MG/VIAL IV SCH ×2 (08:23→22:08)
[2020-04-13] MEDS: MIDODRINE HCL 5MG TABLET PO SCH ×3 (08:24→17:55)
[2020-04-13] MEDS: INSULIN GLARGINE UD 100 UNITS/ML SYR SUBCUT SCH ×2 (09:54→23:24)
[2020-04-13 10:13] LABS: PLATELET ESTIMATE NORMAL
[2020-04-13 10:28] LABS: BG BASE EXCESS -5.5 mmol/L (-2.0-2.0); BG CARBOXYHEMOGLOBIN 1.8 % (0.5-1.5); BG DEOXYHEMOGLOBIN 10.6 % (0.0-5.0); BG FRACTION INSPIRED OXYGEN 45; BG HCO3 ACT 20.9 mmol/L (22.0-26.0); BG METHEMOGLOBIN 0.2 % (0.0-1.5); BG OXYGEN SATURATION 89.2 % (92.0-98.5); BG OXYHEMOGLOBIN 87.4 % (94.0-97.0); BG PCO2 45.7 mmHg (35.0-45.0); BG PH 7.279 (7.350-7.450); BG PO2 63.5 mmHg (75.0-100.0); BG TOTAL HEMOGLOBIN 8.7 g/dL (12.0-18.0); BG VENT MODE VENT - AC
[2020-04-13] MEDS ORDERED: MIDAZOLAM 100MG/100ML PMX 100 ML IV PRN ×2 (21:30→22:00)
[2020-04-13] MEDS ORDERED: FENTANYL CITRATE/PF 2,500 MCG in SODIUM CHLORIDE 0.9% 200 ML IV PRN (21:40)
[2020-04-13] MEDS ORDERED: PROPOFOL 10MG/ML 100ML 100 ML IV PRN (21:45)
[2020-04-14] VITALS (95 sets, daily range): BP systolic 84–125; BP diastolic 41–65
[2020-04-14] MEDS: IPRATROPIUM/ALBUTEROL 0.5-3(2.5)MG/3ML NEB HHN SCH ×4 (01:29→20:28)
[2020-04-14] MEDS: PHENYLEPHRINE 100 MG in DEXT 5% WATER 240 ML IV PRN ×3 (04:39→23:09)
[2020-04-14] MEDS: LACTULOSE 20G/30ML UDC PO SCH ×4 (05:38→23:16)
[2020-04-14] MEDS: BLOOD SUGAR DIAGNOSTIC STRIP TEST SCH ×4 (05:38→23:16)
[2020-04-14] MEDS: INSULIN LISPRO 100 UNITS/ML SUBCUT SCH ×4 (05:38→23:16)
[2020-04-14 06:50] LABS: CHLORIDE 115 mEq/L (98-107)
[2020-04-14 06:57] LABS: HEMATOCRIT. 27.9 % (42.0-52.0); HEMOGLOBIN. 8.8 g/dL (14.0-18.0); MEAN CORPUSCULAR HEMOGLOBIN 29.3 pg (28.0-32.0); MEAN CORPUSCULAR VOLUME 92.3 fL (80.0-94.0); MEAN PLATELET VOLUME 8.8 fl (7.4-10.4); PLATELET 183 x1000/uL (130-400); RED BLOOD CELL COUNT 3.02 mill/uL (4.7-6.1); RED CELL DISTRIBUTION WIDTH 22.4 % (11.6-14.6)
[2020-04-14 08:13] LABS: BG BASE EXCESS -8.3 mmol/L (-2.0-2.0); BG CARBOXYHEMOGLOBIN 0.7 % (0.5-1.5); BG DEOXYHEMOGLOBIN 1.1 % (0.0-5.0); BG FRACTION INSPIRED OXYGEN 55; BG HCO3 ACT 18.1 mmol/L (22.0-26.0); BG METHEMOGLOBIN 0.2 % (0.0-1.5); BG OXYGEN SATURATION 98.9 % (92.0-98.5); BG PCO2 40.7 mmHg (35.0-45.0); BG PH 7.266 (7.350-7.450); BG PO2 149.9 mmHg (75.0-100.0); BG SAMPLE SITE RIGHT RADIAL; BG TOTAL HEMOGLOBIN 8.9 g/dL (12.0-18.0); BG VENT MODE VENT - AC
[2020-04-14] MEDS: DEXT 5%/0.2% NACL 1,000 ML IV SCH ×2 (08:15→10:09)
[2020-04-14] MEDS: MIDODRINE HCL 5MG TABLET PO SCH ×3 (08:38→17:41)
[2020-04-14] MEDS: RIFAXIMIN 550 MG TABLET PO SCH ×2 (08:38→20:35)
[2020-04-14] MEDS: MULTIVITAMINS,THER W-MINERALS TABLET PO SCH (08:38)
[2020-04-14] MEDS: QUETIAPINE FUMARATE 25MG TABLET PO SCH ×2 (08:38→20:35)
[2020-04-14] MEDS: PANTOPRAZOLE SODIUM 40 MG/VIAL IV SCH ×2 (08:38→20:35)
[2020-04-14] MEDS: THIAMINE HCL IV SCH (09:25)
[2020-04-14] MEDS: NACL IV SCH (09:25)
[2020-04-14] MEDS: DEXT IV SCH (09:25)
[2020-04-14] MEDS: FOLIC ACID IV SCH (09:25)
[2020-04-14] MEDS: INSULIN GLARGINE UD 100 UNITS/ML SYR SUBCUT SCH (09:26)
[2020-04-14 10:44] LABS: PLATELET ESTIMATE NORMAL
[2020-04-14] MEDS ORDERED: PROPOFOL 10MG/ML 100ML 100 ML IV PRN (13:45)
[2020-04-14] MEDS: FUROSEMIDE 40MG/4ML VIAL IVP SCH (17:41)
[2020-04-15] VITALS (95 sets, daily range): BP systolic 55–258; BP diastolic 22–102
[2020-04-15] MEDS: IPRATROPIUM/ALBUTEROL 0.5-3(2.5)MG/3ML NEB HHN SCH ×4 (01:50→20:17)
[2020-04-15 05:50] LABS: HEMATOCRIT. 26.2 % (42.0-52.0); HEMOGLOBIN. 8.1 g/dL (14.0-18.0); MEAN CORPUSCULAR HEMOGLOBIN 28.7 pg (28.0-32.0); MEAN PLATELET VOLUME 8.8 fl (7.4-10.4); PLATELET 214 x1000/uL (130-400); RED BLOOD CELL COUNT 2.81 mill/uL (4.7-6.1); RED CELL DISTRIBUTION WIDTH 21.3 % (11.6-14.6)
[2020-04-15] MEDS: INSULIN LISPRO 100 UNITS/ML SUBCUT SCH ×3 (06:00→17:23)
[2020-04-15] MEDS ORDERED: NOREPINEPHRINE 8MG/250ML PMX 250 ML IV PRN (06:00)
[2020-04-15] MEDS: LACTULOSE 20G/30ML UDC PO SCH ×3 (06:16→21:02)
[2020-04-15] MEDS: BLOOD SUGAR DIAGNOSTIC STRIP TEST SCH ×3 (06:33→17:12)
[2020-04-15] MEDS: PHENYLEPHRINE 100 MG in DEXT 5% WATER 240 ML IV PRN (06:46)
[2020-04-15] MEDS: FUROSEMIDE 40MG/4ML VIAL IVP SCH ×2 (06:59→17:05)
[2020-04-15] MEDS: NOREPINEPHRINE 8 MG in DEXT 5% WATER 242 ML IV PRN ×2 (09:06→17:19)
[2020-04-15] MEDS ORDERED: PHENYLEPHRINE 200 MG in DEXT 5% WATER 480 ML IV PRN (09:45)
[2020-04-15] MEDS: NACL IV SCH ×2 (10:06→18:56)
[2020-04-15] MEDS: MIDODRINE HCL 5MG TABLET PO SCH ×3 (10:06→17:42)
[2020-04-15] MEDS: THIAMINE HCL IV SCH ×2 (10:06→18:56)
[2020-04-15] MEDS: DEXT IV SCH ×2 (10:06→18:56)
[2020-04-15] MEDS: FOLIC ACID IV SCH ×2 (10:06→18:56)
[2020-04-15] MEDS: MULTIVITAMINS,THER W-MINERALS TABLET PO SCH (10:06)
[2020-04-15] MEDS: PANTOPRAZOLE SODIUM 40 MG/VIAL IV SCH ×2 (10:06→21:25)
[2020-04-15] MEDS: INSULIN GLARGINE UD 100 UNITS/ML SYR SUBCUT SCH ×3 (10:07→22:47)
[2020-04-15] MEDS: QUETIAPINE FUMARATE 25MG TABLET PO SCH ×2 (10:07→21:00)
[2020-04-15] MEDS ORDERED: CEFEPIME 1,000 MG in DEXTROSE 5% WATER 50 ML IV SCH ×2 (11:30→14:00)
[2020-04-15] MEDS ORDERED: SODIUM BICARBONATE 100 MEQ in DEXTROSE 5% WATER 1,000 ML IV SCH (12:30)
[2020-04-15 13:02] LABS: BG BASE EXCESS -11.5 mmol/L (-2.0-2.0); BG DEOXYHEMOGLOBIN 3.1 % (0.0-5.0); BG FRACTION INSPIRED OXYGEN 40; BG HCO3 ACT 15.4 mmol/L (22.0-26.0); BG METHEMOGLOBIN 0.2 % (0.0-1.5); BG OXYGEN SATURATION 96.9 % (92.0-98.5); BG OXYHEMOGLOBIN 95.7 % (94.0-97.0); BG PCO2 38.4 mmHg (35.0-45.0); BG PO2 99.9 mmHg (75.0-100.0); BG SAMPLE SITE RIGHT RADIAL; BG TOTAL HEMOGLOBIN 10.2 g/dL (12.0-18.0); BG VENT MODE VENT - AC
[2020-04-15] MEDS: VASOPRESSIN 20 UNIT in SODIUM CHLORIDE 0.9% 99 ML IV PRN ×2 (13:50→23:03)
[2020-04-15 14:36] LABS: PLATELET ESTIMATE NORMAL
[2020-04-15] MEDS: NOREPINEPHRINE 32 MG in DEXT 5% WATER 218 ML IV PRN (20:25)
[2020-04-15] MEDS: PHENYLEPHRINE 200 MG in DEXT 5% WATER 480 ML IV PRN (22:44)
[2020-04-16] VITALS (17 sets, daily range): BP systolic 36–97; BP diastolic 14–74
[2020-04-16] MEDS: IPRATROPIUM/ALBUTEROL 0.5-3(2.5)MG/3ML NEB HHN SCH ×2 (00:24→07:54)
[2020-04-16] MEDS: BLOOD SUGAR DIAGNOSTIC STRIP TEST SCH ×2 (00:33→05:59)
[2020-04-16] MEDS: NOREPINEPHRINE 32 MG in DEXT 5% WATER 218 ML IV PRN ×2 (01:32→06:46)
[2020-04-16] MEDS: LACTULOSE 20G/30ML UDC PO SCH (05:59)
[2020-04-16] MEDS: INSULIN LISPRO 100 UNITS/ML SUBCUT SCH ×2 (05:59)
[2020-04-16] MEDS: FUROSEMIDE 40MG/4ML VIAL IVP SCH (06:19)
[2020-04-16] MEDS: PANTOPRAZOLE SODIUM 40 MG/VIAL IV SCH (08:40)
[2020-04-16] MEDS: PHENYLEPHRINE 200 MG in DEXT 5% WATER 480 ML IV PRN (08:40)
[2020-04-16] MEDS: MIDODRINE HCL 5MG TABLET PO SCH (08:41)
[2020-04-16] MEDS: QUETIAPINE FUMARATE 25MG TABLET PO SCH (08:41)
[2020-04-16] MEDS: MULTIVITAMINS,THER W-MINERALS TABLET PO SCH (08:41)
== END 2020-04-16 09:52 | disposition expired | DRG 720 ==
LOC: ER 03:46 → 3WST 07:08 → EDBEDREQSVC 07:16 → ENRESERV 11:25 → 3WST 13:55 → 5EST 22:22 → CVICU 04-06 20:37
PROVIDERS: ADMIT Internal Medicine; ATTEND Internal Medicine
PROC: 30233N1 Transfusion of Nonautologous Red Blood Cells into Peripheral Vein, Percutaneous Approach (ICD-10-PCS; 2020-04-04)
PROC: 5A09457 Assistance with Respiratory Ventilation, 24-96 Consecutive Hours, Continuous Positive Airway Pressure (ICD-10-PCS; 2020-04-05)
PROC: 05HY33Z Insertion of Infusion Device into Upper Vein, Percutaneous Approach (ICD-10-PCS; 2020-04-07)
PROC: B54MZZA Ultrasonography of Right Upper Extremity Veins, Guidance (ICD-10-PCS; 2020-04-07)
PROC: 5A1955Z Respiratory Ventilation, Greater than 96 Consecutive Hours (ICD-10-PCS; principal; 2020-04-08)
PROC: 05HN33Z Insertion of Infusion Device into Left Internal Jugular Vein, Percutaneous Approach (ICD-10-PCS; 2020-04-08)
PROC: B544ZZA Ultrasonography of Left Jugular Veins, Guidance (ICD-10-PCS; 2020-04-08)
PROC: 0BH17EZ Insertion of Endotracheal Airway into Trachea, Via Natural or Artificial Opening (ICD-10-PCS; 2020-04-08)
DX: A41.9 Sepsis, unspecified organism (principal); D64.9 Anemia, unspecified; D68.9 Coagulation defect, unspecified; D69.6 Thrombocytopenia, unspecified; E11.65 Type 2 diabetes mellitus with hyperglycemia; E43 Unspecified severe protein-calorie malnutrition; E66.9 Obesity, unspecified; E83.51 Hypocalcemia; E87.1 Hypo-osmolality and hyponatremia; E87.2 Acidosis; E87.6 Hypokalemia; F17.210 Nicotine dependence, cigarettes, uncomplicated; G92 Toxic encephalopathy; I10 Essential (primary) hypertension; J69.0 Pneumonitis due to inhalation of food and vomit; J96.01 Acute respiratory failure with hypoxia; K57.90 Diverticulosis of intestine, part unspecified, without perforation or abscess without bleeding; N17.0 Acute kidney failure with tubular necrosis; M19.90 Unspecified osteoarthritis, unspecified site; F10.139 Alcohol abuse with withdrawal, unspecified; Y90.9 Presence of alcohol in blood, level not specified; K72.90 Hepatic failure, unspecified without coma; Z66 Do not resuscitate; E87.0 Hyperosmolality and hypernatremia; K70.30 Alcoholic cirrhosis of liver without ascites; R65.21 Severe sepsis with septic shock; Z90.49 Acquired absence of other specified parts of digestive tract; Z68.39 Body mass index [BMI] 39.0-39.9, adult; Z71.41 Alcohol abuse counseling and surveillance of alcoholic
CPT/HCPCS: 31500; 36415; 36600; 71045; 76705; 76770; 76937; 80048; 80053; 80076; 80305; 80320; 81003; 82010; 82040; 82140; 82248; 82270; 82375; 82607; 82728; 82746; 82805; 82962; 83540; 83550; 83605; 83735; 84132; 84134; 84145; 84478; 85014; 85018; 85025; 85044; 86703; 86705; 86706; 86709; 86803; 86850; 86900; 86920; 87070; 87340; 93005; 93970; 94002; 94003; 94640; 94660; 96374; 99285; A6261; C1725; C9113; J0360; J0692; J0696; J1160; J1630; J1815; J1940; J2060; J2250; J2270; J2354; J2370; J2405; J3010; J3411; J3430; J3480; J3490; J7030; J7040; J7050; J7060; J7070; P9016; A4315; G0480